=== PATIENT | female | born 1950 | race Caucasian/White ===

== ENCOUNTER 2018-02-02 08:16 | Day surgery (SDC) | payer OTHER ==
[2018-02-02] MEDS: TETRACAINE 0.5% UNIT-DOSE OP PRN ×3 (08:25→10:00)
[2018-02-02] MEDS: BETADINE OPTH PREP OP PRN ×2 (09:25→10:00)
[2018-02-02] MEDS: CYCLOGYL 2% OPTH OP PRN ×3 (09:26→09:36)
[2018-02-02] MEDS ORDERED: BSS WITH EPINEPHRINE OP ONE (09:31)
[2018-02-02] MEDS ORDERED: ZOFRAN 4 MG/2 ML IVP ONE (09:31)
[2018-02-02] MEDS ORDERED: DEX-MOXI-KETOR OPTH INJ 1/0.5/0.4 MG/ML IO ONE (09:31)
[2018-02-02] MEDS ORDERED: LIDOCAINE 1% 20 ML MDV ID STA (09:31)
[2018-02-02] MEDS ORDERED: BRIMONIDINE TARTRATE 0.2% OPTH SOL OP PRN (09:31)
[2018-02-02] MEDS ORDERED: LIDOCAINE 1%/PHENYLEPHRINE 1.5% BSS (SURGERY) INTRAOCULA ONE (09:31)
[2018-02-02] MEDS ORDERED: VERSED ONE (10:03)
[2018-02-02] MEDS ORDERED: SUBLIMAZE ONE (10:03)
[2018-02-02 11:40] VITALS: TEMP 97.7
[2018-02-02 16:36] VITALS: BP 128/57
== END 2018-02-02 10:55 | disposition home or self-care (01) ==
LOC: SURG 08:16
PROVIDERS: ATTEND Ophthalmology
DX: H25.811 Combined forms of age-related cataract, right eye (principal)

== ENCOUNTER 2018-02-16 07:41 | Day surgery (SDC) | payer OTHER ==
[2018-02-16] MEDS: TETRACAINE 0.5% UNIT-DOSE OP PRN ×2 (08:25→09:06)
[2018-02-16] MEDS: BETADINE OPTH PREP OP PRN ×2 (08:25→09:06)
[2018-02-16] MEDS: CYCLOGYL 2% OPTH OP PRN ×3 (08:26→08:36)
[2018-02-16] MEDS ORDERED: BRIMONIDINE TARTRATE 0.2% OPTH SOL OP PRN (08:36)
[2018-02-16] MEDS ORDERED: BSS WITH EPINEPHRINE OP ONE (08:36)
[2018-02-16] MEDS ORDERED: ZOFRAN 4 MG/2 ML IVP ONE (08:36)
[2018-02-16] MEDS ORDERED: LIDOCAINE 1%/PHENYLEPHRINE 1.5% BSS (SURGERY) INTRAOCULA ONE (08:36)
[2018-02-16] MEDS ORDERED: DEX-MOXI-KETOR OPTH INJ 1/0.5/0.4 MG/ML IO ONE (08:36)
[2018-02-16] MEDS ORDERED: LIDOCAINE 1% 20 ML MDV ID STA (08:37)
[2018-02-16] MEDS ORDERED: VERSED ONE (09:04)
[2018-02-16] MEDS ORDERED: SUBLIMAZE ONE (09:04)
[2018-02-16 11:46] VITALS: TEMP 97.6
[2018-02-24 14:25] VITALS: BP 124/68
== END 2018-02-16 10:15 | disposition home or self-care (01) ==
LOC: SURG 07:41
PROVIDERS: ATTEND Ophthalmology
DX: H25.812 Combined forms of age-related cataract, left eye (principal)